=== PATIENT | male | born 1955 | race Caucasian/White ===

== ENCOUNTER 2022-06-23 08:23 | Inpatient (IN) | payer MEDICARE ==
[~2022-06-23] VITALS: Ht 188 cm; Wt 128.4 kg
[2022-06-23 09:23] LABS: HEMOGLOBIN 18.7 gm/dl (14.0-17.5); RED BLOOD COUNT 6.8 M/UL (4.20-5.50); WHITE BLOOD COUNT 12.8 K/UL (4.5-11.0)
[2022-06-23] MEDS ORDERED: ELIQUIS5 MG PO (13:33)
[2022-06-23] MEDS ORDERED: PROMETHAZINE HC25 M1 PO (13:34)
[2022-06-23] MEDS ORDERED: NOVOLOG100 UNIT/2 SQ (13:34)
[2022-06-23] MEDS ORDERED: BUMETANIDE1 MG PO (13:34)
[2022-06-23] MEDS ORDERED: LEVEMIR100 UNIT/1 SQ (13:34)
[2022-06-23] MEDS ORDERED: FLOMAX 0.4 MG0.4 MG PO (13:35)
[2022-06-23] MEDS ORDERED: ALDACTONE 25MG25 MG PO (13:35)
[2022-06-23] MEDS ORDERED: ARICEPT5 MG PO (13:35)
[2022-06-23] MEDS ORDERED: METOPROLOL SUCC25 MG PO (13:35)
[2022-06-23] MEDS ORDERED: POTASSIUM CHLO10 ME2 PO (13:36)
[2022-06-23] MEDS ORDERED: ENTRESTO 49 MG1 EACH PO (13:37)
[2022-06-23] MEDS ORDERED: BUSPAR 10MG10 MG PO (13:37)
[2022-06-23] MEDS ORDERED: SERTRALINE HCL100 MG PO (13:37)
[2022-06-23] MEDS ORDERED: PREGABALIN100 MG PO (13:38)
[2022-06-23] MEDS ORDERED: EFFEXOR XR37.5 MG PO (13:38)
[2022-06-23] MEDS ORDERED: JARDIANCE10 MG PO (13:39)
[2022-06-23] MEDS ORDERED: TESTOSTERO200 MG/1 M IM (13:39)
[2022-06-23] MEDS ORDERED: ACETAMINOPHEN500 MG PO (13:40)
[2022-06-23] MEDS ORDERED: ONE DAILY MULT1 EAC1 PO (13:40)
[2022-06-23] MEDS ORDERED: STOOL SOFTENER100 MG PO (13:41)
[2022-06-23] MEDS ORDERED: VITAMIN B-121000 MC3 PO (13:41)
[2022-06-24 02:06] LABS: HEMOGLOBIN 17.7 gm/dl (14.0-17.5); RED BLOOD COUNT 6.43 M/UL (4.20-5.50)
[2022-06-24 02:10] LABS: WHITE BLOOD COUNT 8.2 K/UL (4.5-11.0)
[2022-06-25 01:58] LABS: HEMOGLOBIN 16.8 gm/dl (14.0-17.5); RED BLOOD COUNT 6.35 M/UL (4.20-5.50)
[2022-06-25 02:10] LABS: WHITE BLOOD COUNT 12.2 K/UL (4.5-11.0)
[2022-06-25 02:27] LABS: BUN/CREATININE RATIO 21 (0-10)
[2022-06-26 02:02] LABS: HEMOGLOBIN 15.8 gm/dl (14.0-17.5); RED BLOOD COUNT 5.88 M/UL (4.20-5.50); WHITE BLOOD COUNT 12.5 K/UL (4.5-11.0)
[2022-06-27 02:07] LABS: HEMOGLOBIN 17.6 gm/dl (14.0-17.5); RED BLOOD COUNT 6.45 M/UL (4.20-5.50); WHITE BLOOD COUNT 12.1 K/UL (4.5-11.0)
[2022-06-28 02:28] LABS: HEMOGLOBIN 15.8 gm/dl (14.0-17.5); RED BLOOD COUNT 5.82 M/UL (4.20-5.50); WHITE BLOOD COUNT 12.5 K/UL (4.5-11.0)
[2022-06-29 02:34] LABS: HEMOGLOBIN 15.2 gm/dl (14.0-17.5); RED BLOOD COUNT 5.6 M/UL (4.20-5.50)
[2022-06-30 02:20] LABS: HEMOGLOBIN 15.8 gm/dl (14.0-17.5); RED BLOOD COUNT 5.91 M/UL (4.20-5.50); WHITE BLOOD COUNT 11.3 K/UL (4.5-11.0)
[2022-06-30] MEDS ORDERED: CEFUROXIME500 MG PO (09:14)
[2022-06-30] MEDS ORDERED: DEMADEX 20 MG T20 MG PO (10:31)
== END 2022-06-30 12:26 | disposition home or self-care (01) | DRG 177 ==
LOC: ER1 08:23 → PROG CARE 11:21 → CDU 11:21 → PROG CARE 12:31
PROVIDERS: Family Medicine; Internal Medicine; Internal Medicine Nephrology; Physician Assistant Medical; ADMIT Internal Medicine Infectious Disease
PROC: 8E0ZXY6 Isolation (ICD-10-PCS; principal; 2022-06-23)
PROC: XW033E5 Introduction of Remdesivir Anti-infective into Peripheral Vein, Percutaneous Approach, New Technology Group 5 (ICD-10-PCS; 2022-06-23)
PROC: 3E0333Z Introduction of Anti-inflammatory into Peripheral Vein, Percutaneous Approach (ICD-10-PCS; 2022-06-23)
PROC: 5A09357 Assistance with Respiratory Ventilation, Less than 24 Consecutive Hours, Continuous Positive Airway Pressure (ICD-10-PCS; 2022-06-24)
PROC: 5A09457 Assistance with Respiratory Ventilation, 24-96 Consecutive Hours, Continuous Positive Airway Pressure (ICD-10-PCS; 2022-06-24)
PROC: B24BZZZ Ultrasonography of Heart with Aorta (ICD-10-PCS; 2022-06-26)
PROC: 5A09357 Assistance with Respiratory Ventilation, Less than 24 Consecutive Hours, Continuous Positive Airway Pressure (ICD-10-PCS; 2022-06-26)
PROC: 5A09357 Assistance with Respiratory Ventilation, Less than 24 Consecutive Hours, Continuous Positive Airway Pressure (ICD-10-PCS; 2022-06-29)
DX: U07.1 COVID-19 (principal); I50.23 Acute on chronic systolic (congestive) heart failure; J12.82 Pneumonia due to coronavirus disease 2019; J96.01 Acute respiratory failure with hypoxia; I13.0 Hypertensive heart and chronic kidney disease with heart failure and stage 1 through stage 4 chronic kidney disease, or unspecified chronic kidney disease; E87.1 Hypo-osmolality and hyponatremia; N17.9 Acute kidney failure, unspecified; N18.30 Chronic kidney disease, stage 3 unspecified; D63.1 Anemia in chronic kidney disease; E11.22 Type 2 diabetes mellitus with diabetic chronic kidney disease; I48.0 Paroxysmal atrial fibrillation; D50.9 Iron deficiency anemia, unspecified; E78.5 Hyperlipidemia, unspecified; D75.1 Secondary polycythemia; E86.0 Dehydration; E66.9 Obesity, unspecified; G47.33 Obstructive sleep apnea (adult) (pediatric); N40.0 Benign prostatic hyperplasia without lower urinary tract symptoms; F03.90 Unspecified dementia, unspecified severity, without behavioral disturbance, psychotic disturbance, mood disturbance, and anxiety; I25.10 Atherosclerotic heart disease of native coronary artery without angina pectoris; I25.5 Ischemic cardiomyopathy; Z79.01 Long term (current) use of anticoagulants; Z95.810 Presence of automatic (implantable) cardiac defibrillator; Z95.5 Presence of coronary angioplasty implant and graft; Z79.4 Long term (current) use of insulin; Z83.3 Family history of diabetes mellitus; Z82.49 Family history of ischemic heart disease and other diseases of the circulatory system; Z90.49 Acquired absence of other specified parts of digestive tract; Z68.37 Body mass index [BMI] 37.0-37.9, adult
CPT/HCPCS: ECHO; 36415; 36600; 71045; 71046; 80048; 80053; 81001; 81270; 82043; 82550; 82553; 82570; 82728; 82803; 82962; 83036; 83540; 83550; 83735; 83880; 84100; 84156; 84484; 85025; 85027; 85379; 93005; 93306; 94640; 94660; 94760; 96372; 97110-GP-CQ; 97116; 97116-GP-CQ; 97162; 97530; 97530-GP-CQ; 99285; J0248; J1100; J1335; J1650; J1756; J1940; J2550; J7030; P9047; U0002